=== PATIENT | male | born 1950 ===

== ENCOUNTER 2024-12-22 14:07 | Outpatient (REF) | payer OTHER, SELFPAY ==
--- OUTSIDE RECORDS SUMMARY | 2024-12-22 14:57 | XMS_ITS | Clinical Summary ---
Author Organization [facility] Address [address] [facility] [address] [place] [address] Phone Care Team Providers Care Firestop/Containment Worker Name Role Phone Cj Reyna MD Primary Care Provider [phone] Allergies Active Allergy Reactions Criticality Noted Date Comments Latex Rash Low 08/13/2015 Other reaction(s): itching Pt stated she gets blisters when she uses latex gloves. Medications carvedilol (COREG) 6.25 MG tablet Take 12.5 mg by mouth 2 (two) times a day Active tacrolimus (PROGRAF) 1 MG capsule Take 0.5 mg by mouth in the morning and 0.5 mg in the evening. Active mycophenolate (CELLCEPT) 500 MG tablet 1 tablet 2 (two) times a day Active B-D UF III MINI PEN NEEDLES 31G X 5 MM misc USE FOR INJECT basaglar 1 Active GNP Melatonin 3 MG tablet TAKE ONE TABLET BY MOUTH DAILY AT BEDTIME NEEDED FOR insomnia. MAY TAKE 2 TABLETS AFTER 3 DAYS. TAKE 1 HOUR prior to AT BEDTIME 1 Active polyethylene glycol (GLYCOLAX) 17 GM/SCOOP powder DISSOLVE 17gm IN WATER AND DRINK DAILY NEEDED FOR CONSTIPATION 1 Active famotidine (PEPCID) 20 MG tablet TAKE ONE TABLET BY MOUTH 2 (two) times a day. avoid eating and drinking for 10 minutes after each dose 1 Active Empagliflozin (Jardiance) 25 MG tablet Take by mouth Active atorvastatin (LIPITOR) 20 MG tablet Take 20 mg by mouth 1 (one) time each day Active Dulaglutide (TRULICITY SC) Inject under the skin Active tacrolimus (PROGRAF) 0.5 MG capsule TAKE 1 CAPSULE BY MOUTH EVERY MORNING AND TAKE 1 CAPSULE BY MOUTH ONCE DAILY IN THE EVENING 180 capsule 3 03/31/202 3 Active omeprazole OTC (PriLOSEC OTC) 20 MG EC tablet Take 20 mg by mouth 1 (one) time each day Do not crush, chew, or split. Active insulin glargine (LANTUS) 100 UNIT/ML injection Inject 15 Units under the skin every night Active Mounjaro 5 MG/0.5ML solution auto-injector INJECT THE CONTENT OF 1 syringe SUBCUTANEOUSLY EACH WEEK. rotar siteo de inyeccion Active Cholecalcifero l (Vitamin D-3) 25 MCG (1000 UT) capsule Take by mouth Active Active Problems Problem Noted Date Diagnosed Date Obese class I 02/20/2023 02/20/2023 Stage 3b chronic kidney disease 02/20/2023 Renal osteodystrophy 02/20/2023 Patient care statuses 01/31/2022 Osteoarthritis of right knee joint 01/31/2022 Lumbar spondylosis 01/31/2022 Iron deficiency anemia 07/05/2021 Hypertensive disorder 07/05/2021 Type 2 diabetes mellitus wit h diabetic chronic kidney disease 07/05/2021 Acute nontraumatic kidney injury 11/25/2020 Chronic kidney disease stage 3 11/25/2020 Hyperkalemia 11/25/2020 Stage 3a chronic kidney disease 11/25/2020 Intestinal obstruction, not otherwise specified 07/19/2016 02/20/2023 Asthma 12/30/2015 02/20/2023 Schistosomiasis 01/27/2015 02/20/2023 Resolved Problems Problem Noted Date Diagnosed Date Resolved Date Umbilical hernia 07/05/2021 07/20/2021 Tubular adenoma of colon 07/05/202108/2021 Surgical follow-up 07/05/2021 2 Renal tubular acidosis 07/05/202107/20 Needs assistance at home 07/05/202108/2021 Portal vein thrombosis 07/05/202107/20 Immunosuppression 07/05/2021 07/20/2021 H/O: liver recipient 07/05/2021 022 H/O: skin disorder 07/05/2021 2 Esophageal varix 07/05/2021 07/20/2021 Femoral hernia 07/05/2021 07/20/2021 Genital warts 07/05/2021 07/20/2021 Cirrhosis of liver 07/05/2021 Secondary diabetes mellitus 11/25/2020 07/20/2021 Osteopenia 01/22/2018 07/20/2021 History of colonoscopy 05/05/201507/20 Encounters Date Type Department Care Team Description 10/14/2024 2:00 PM EDT Office Visit [facility] P.. [address] [place] [phone] Devante De La Cruz MD Stage 3a chronic kidney disease (HCC) (Primary Dx); Hypertensive disorder from Last 3 Months Immunizations Immunization Administration Dates Next Due Hepatitis B 03/22/2015,02/18/2015 Influenza, Unspecified 07/17/2021,2019,03/11/2019,08/21/2018 ,04/23/2018,03/27/2017,05/16/2016 Moderna SARS-COV-2 11/03/2020,10/06/2020 PPD Test 04/07/2014 Pfizer SARS-COV-2 11/10/2021,05/18/2021 Pneumococcal Conjugate 13-Valent 01/16/2019,06/17 Pneumococcal Polysaccharide 03/24/2019, 3 Tdap 04/23/2018,04/07/2014 Zoster 05/06/2015 Family History Medical History Relation Comments Diabetes Father Diabetes Mother Kidney disease Sibling brother-esrd Relation Status Comments Father Mother Sibling Social History Tobacco Use Types Packs/Day Years Used Date Smoking Tobacco: Never Alcohol Use Standard Drinks/Week Comments No 0 (1 standard drink = 0.6 oz pur e alcohol) Comments Unknown Sex and Gender Information Value Date Recorded Sex Assigned at Not on file Legal Sex Female 4:42 PM EST Gender Identity Not on file Sexual Orientation Not on file Last Filed Vital Signs Vital Sign Reading Time Taken Comments Blood Pressure 118/70 10/14/2024 1:55 PM EDT Pulse 66 10/14/2024 1:55 PM EDT Temperature - - Respiratory Rate - - Oxygen Saturation 97% 10/14/2024 1:55 PM EDT Inhaled Oxygen Concentration - - Weight 76.4 kg (168 lb 6.4 oz) 10/14/2024 1:55 P M EDT Height 154.9 cm (5' 1 ) 04/15/2024 2:09 PM EDT Body Mass Index 31.82 04/15/2024 2:09 PM EDT Plan of Treatment Upcoming Encounters Date Type Department Care Team (Late st Contact Info) Description 07/12/2025 1:00 PM EST Office Visit [facility] [address] [phone] Steff Medellin ARNP [address] [facility] [address] [place] [phone] Health Maintenance Due Date Last Done Comments Breast Cancer Screening 1951 Colorectal Cancer Screening: Annual FOBT 2000 Colorectal Cancer Screening: Sigmoidoscopy 2000 Diabetes: Hemoglobin A1C 07/17/2020 Diabetes: Ophthalmology Exam 07/17/2020 Diabetes: Pedal Pulse Checked 07/17/2020 Diabetes: Sensory Foot Exam 07/17/2020 Diabetes: Visual Foot Exam 07/17/2020 Influenza Vaccine (#1) 2025 2, 04/01/2020, 03/11/2019, Additional history exists Colorectal Cancer Screening: Colonoscopy 07/20/2031 07/20/2021 Hepatitis B Vaccine Aged Out 03/22/2015, 02/27/2015, 02/18/2015 No longer eligible based on patient's age to complete this topic Pneumococcal Vaccine: 50+ Years Completed 03/24/2019, 01/16/2019, 06/29/2015, Additional history exists Pneumococcal Vaccine: Peds (0 to 5 Years) and At-Risk Patients (6 to 49 Years) Discontinued 03/24/2019, 01/16/2019, 06/29/2015, Additional history exists Procedures Procedure Name Priority Date/Time Associated Diagnosis Comments MAGNESIUM Routine 09/28/2024 3:16 PM EDT Stage 3b chronic kidney disease (HCC) Type 2 diabetes mellitus with diabetic chronic kidney disease (HCC) Hypertensive disorder CBC Routine 09/28/2024 3:16 PM EDT Stage 3b chronic kidney disease (HCC) Type 2 diabetes mellitus with diabetic chronic kidney disease (HCC) Hypertensive disorder VITAMIN D 25 HYDROXY Routine 09/28/2024 3:16 PM EDT Stage 3b chronic kidney disease (HCC) Type 2 diabetes mellitus with diabetic chronic kidney disease (HCC) Hypertensive disorder PROTEIN / CREATININE RATIO, URINE Routine 09/28/2024 3:16 PM EDT Stage 3b chronic kidney disease (HCC) Type 2 diabetes mellitus with diabetic chronic kidney disease (HCC) Hypertensive disorder URINE ALBUMIN / CREATININE RATIO Routine 09/28/2024 3:16 PM EDT Stage 3b chronic kidney disease (HCC) Type 2 diabetes mellitus with diabetic chronic kidney disease (HCC) Hypertensive disorder URINALYSIS WITH MICROSCOPIC Routine 09/28/2024 3:16 PM EDT Stage 3b chronic kidney disease (HCC) Type 2 diabetes mellitus with diabetic chronic kidney disease (HCC) Hypertensive disorder RENAL FUNCTION PANEL Routine 09/28/2024 3:16 PM EDT Stage 3b chronic kidney disease (HCC) Type 2 diabetes mellitus with diabetic chronic kidney disease (HCC) Hypertensive disorder PTH, INTACT Routine 09/28/2024 3:16 PM EDT Stage 3b chronic kidney disease (HCC) Type 2 diabetes mellitus with diabetic chronic kidney disease (HCC) Hypertensive disorder MICROSCOPIC EXAMINATION - DO NOT USE Routine 09/28/2024 3:16 PM EDT from Last 3 Months Results * Microscopic Examination (09/28/2024 3:16 PM EDT) WBC, Urine 0-5 0 - 5 /hpf [facility] RBC, Urine None seen 0 - 2 /hpf [facility] Squamous Epithelial, Urine 0-10 0 - 10 /hpf [facility] Casts None seen None seen /lpf [facility] Bacteria, Urine None seen None seen/Few [facility] 09/28/2024 3:16 PM EDT 09/28/2024 us Devante De La Cruz MD LAB MICROBIOLOGY - GENERAL OR DERABLES Final Result Performing Organization Address [facility]/ZIP Co de Phone Number [facility] [address] [place] [phone] * Protein, Total, Random Urine w/Creatinine (Protein/Creat Ratio) (09/28/2024 3:16 PM EDT) Creatinine, Ur 91.6 Not Estab. mg/dL [facility] Protein, Ur 10.7 Not Estab. mg/dL [facility] Urine Protein/Creatin ine Ratio 117 0 - 200 mg/g creat [facility] Urine specimen (specimen) Urine specimen obtained by clean catch procedure / Unknown 09/28/2024 3:16 PM EDT 09/28/2024 us Devante De La Cruz MD LAB URINE ORDERABLES Final Re sult Performing Organization Address [facility]/ZIP Co de Phone Number [facility] [address] [place] [address] * Urine Albumin / Creatinine Ratio (09/28/2024 3:16 PM EDT) Albumin, Urine 18.0 Not Estab. ug/mL [facility] Albumin/Creatin ine Ratio 20 0 - 29 mg/g creat [facility] Comment: Normal: 0 - 29 Moderately increased: 30 - 300 Severely increased: >300 Urine specimen (specimen) Urine specimen obtained by clean catch procedure / Unknown 09/28/2024 3:16 PM EDT 09/28/2024 us Devante De La Cruz MD LAB URINE ORDERABLES Final Re sult Performing Organization Address City/[facility]/ZIP Co de Phone Number [facility] [address] [place] [address] * Vitamin D 25 Hydroxy (09/28/2024 3:16 PM EDT) Vitamin D, 25-OH, Total 31.8 30.0 - 100.0 ng/mL [facility] Comment: Vitamin D deficiency has been defined by the [place] [employer] and an Endocrine Society practice guideline as a level of serum 25-OH vitamin D less than 20 ng/mL (1,2). The Endocrine Society went on to further define vitamin D insufficiency as a level between 21 and 29 ng/mL (2). 1. IOM ([place] of [employer]). 2010. Dietary reference intakes for calcium and D. [place]: The National Academies Press. 2. Dotty MF, Christina PANCHAL, Maribell DANIEL, et al. Evaluation, treatment, and prevention of vitamin D deficiency: an Endocrine Society clinical practice guideline. JCEM. 2010; 96(7):1911-30. Blood specimen (specimen) Venous blood / Unknown 09/28/2024 3:16 PM EDT 09/28/2024 Devante De La Cruz MD LAB BLOOD ORDERABLES Final Re sult Performing Organization Address City/[facility]/ZIP Co de Phone Number [facility] [address] [place] [address] * (ABNORMAL) Urinalysis with microscopic (09/28/2024 3:16 PM EDT) Specific [place], Urine 1.026 1.005 - 1.030 [facility] pH Urine 5.5 5.0 - 7.5 [facility] [phone] Color, Urine Yellow Yellow [facility] [phone] Appearance Urine Clear Clear [facility] [phone] WBC Esterase Urine Negative Negative [facility] Protein, Ur Trace Negative/Tra ce [facility] Glucose, Ur 3+(A) Negative [facility] Ketones, Urine Negative Negative [facility] [phone] Blood Urine Negative Negative [facility] [phone] Bilirubin Urine Negative Negative [facility] Urobilinogen Urine 0.2 0.2 - 1.0 mg/dL [facility] Nitrite, Urine Negative Negative [facility] Microscopic Examination Comment [facility] Comment:Microscopic follows if indicated. Other Microsc. Observations See below: [facility] Comment:Microscopic was ezequiel cated and was performed. Urine specimen (specimen) Urine specimen obtained by clean catch procedure / Unknown 09/28/2024 3:16 PM EDT 09/28/2024 us Devante De La Cruz MD LAB URINE ORDERABLES Final Re sult [facility] [address] [place] [address] * CBC (09/28/2024 3:16 PM EDT) WBC 6.2 3.4 - 10.8 x10E3/uL [facility] RBC 5.00 3.77 - 5.28 x10E6/uL [facility] Hemoglobin 14.0 11.1 - 15.9 g/dL [facility] Hematocrit 43.2 34.0 - 46.6 % [facility] MCV 86 79 - 97 fL [facility] MCH 28.0 26.6 - 33.0 pg [facility] MCHC 32.4 31.5 - 35.7 g/dL [facility] RDW 14.5 11.7 - 15.4 % [facility] Platelets 180 150 - 450 x10E3/uL [facility] Blood specimen (specimen) Venous blood / Unknown 09/28/2024 3:16 PM EDT 09/28/2024 Devante De La Cruz MD LAB BLOOD ORDERABLES Final Re sult [facility] [address] [place] [address] * PTH, Intact (09/28/2024 3:16 PM EDT) PTH 37 15 - 65 pg/mL [facility] Blood specimen (specimen) Venous blood / Unknown 09/28/2024 3:16 PM EDT 09/28/2024 Devante De La Cruz MD LAB BLOOD ORDERABLES Final Re sult Performing Organization Address [facility]/ZIP Co de Phone Number [facility] [address] [place] [phone] * Magnesium (09/28/2024 3:16 PM EDT) Magnesium 1.9 1.6 - 2.3 mg/dL [facility] Blood specimen (specimen) Venous blood / Unknown 09/28/2024 3:16 PM EDT 09/28/2024 Devante De La Cruz MD LAB BLOOD ORDERABLES Final Re sult Performing Organization Address City/[facility]/ZIP Co de Phone Number [facility] [address] [place] [address] * (ABNORMAL) Renal Function Panel (09/28/2024 3:16 PM EDT) Glucose 113(H) 70 - 99 mg/dL [facility] BUN 29(H) 8 - 27 mg/dL [facility] Creatinine 1.09(H) 0.57 - 1.00 mg/dL [facility] eGFR CKD-EPI CR 2020 54(L) >59 mL/min/1.7 3 [facility] BUN/Creatinine Ratio 27 12 - 28 [facility] Sodium 141 134 - 144 mmol/L [facility] Potassium 4.5 3.5 - 5.2 mmol/L [facility] Chloride 107(H) 96 - 106 mmol/L [facility] Bicarbonate (CO2) 18(L) 20 - 29 mmol/L [facility] Calcium 9.0 8.7 - 10.3 mg/dL [facility] Albumin 4.4 3.8 - 4.8 g/dL [facility] Phosphorus 3.7 3.0 - 4.3 mg/dL [facility] Blood specimen (specimen) Venous blood / Unknown 09/28/2024 3:16 PM EDT 09/28/2024 us Devante De La Cruz MD LAB BLOOD ORDERABLES Final Re sult [facility] [address] [place] [phone] from Last 3 Months Insurance [facility] ([id number]) [facility] ([id number]) Care Teams Firestop/Containment Worker Relationship Specialty Start Date End Date Cj Reyna MD [address] [place] [phone] PCP - General Internal Medicine 11/25/20
--- OUTSIDE RECORDS SUMMARY | 2024-12-22 14:57 | XMS_ITS | Data Portability ---
Author Organization [facility] Serge Wisdom [facility]geons [facility], [facility] Address [address] [place] [address] Care Team Providers Care Tank Wagon Driver Name Role Phone [facility] Primary Care Provider Assessment Encounter Date Assessment Date Assessment LastModified by Organization Details LastModified Time 12/04/2023 12/04/2023 I am seeing the patient today under the supervision of Dr. Norton who was available but who did not see the patient. HPI: Patient presents today follow-up regarding their Right knee. They have had difficulty up and down stairs sitting standing. Previous injection gave good relief until recent. Problems ambulating. Dnzz-ehn-cbhyxnx medications are helping somewhat but not significantly. Pain is constant aching sometimes sharp pain with giving out sensations. Past family, medical, social history and review of systems has been reviewed, updated and is located in the patient s chart. Examination: The patient is well appearing and in no apparent distress. Alert and oriented x3. Gait is symmetric. Examination of the Right knee reveals no evidence of any edema, erythema, or warmth. No Deformity. Range of motion of the knee limited with mild discomfort at the end ranges. Mild effusion. Does have some tenderness to palpation about the medial hemijoint line. No tenderness to palpation about the lateral hemijoint line. Patellofemoral crepitus is noted. mild lateral ligamentous laxity. Negative Lata s. Calf is supple and nontender. Neurovascularly intact distally. Impression: Right Knee osteoarthritis Plan: We discussed the role of conservative management including medications, physical therapy, injection and bracing. At this point the patient was to proceed with injection. Please see procedure note. They will follow up with us as scheduled.Patient also put on tizanidine meloxicam soilazmisha Not available 12/04/2023 10:56:52 08/21/2024 08/21/2024 I am seeing the patient today under the supervision of Dr Norton who was available but who did not see the patient. Not available 08/21/2024 08:30:52 11/18/2024 11/18/2024 I am seeing the patient today under the supervision of Dr Norton who was available but who did not see the patient. Not available 11/18/2024 08:59:36 Plan of Treatment Reminders Order Date Submit Date Provider Last Modified By Organization Details Last Modified Time Details Appointments None recorded. Lab None recorded. Referral None recorded. Procedures None recorded. Surgeries None recorded. Imaging None recorded. Medication Orders meloxicam 15 mg tablet 2023 024 [facility], [address] [place] [address], [id number], 11:06:29 tizanidine 4 mg tablet 2023 024 [facility], [address] [place] [address], [id number], 11:06:29 Patient TargetsNo targets recorded. Patient InstructionsNo instructions recorded. Reason for Referral None Reported. Problems Name Problem SNOMED Code Status Onset Date Resolution Date Notes Provider Name and Address Organization Details Recorded Time Pain of right knee joint 6614875150596 00 Active 2021 Status : 'A'; Not Available [facility] 11:59:36 Osteoarthr itis of knee 819478664 [facility] 10:55:16 Problem Notes None recorded. Procedures Surgical History Date Name Laterality Status Provider Name and Address Organization Details Recorded Time 11/18/2024 JUSTIN INJ completed Ben Curry PA-C [address], [place], [address], [facility] 11/18/2024 08:59:33 08/21/2024 JUSTIN INJ completed Ben Curry PA-C [address], [place], [address], [facility] 08/21/2024 08:32:22 12/04/2023 JUSTIN INJ completed Ben Curry PA-C [address], [place], [address], [facility] 12/04/2023 10:55:16 Imaging Results None recorded. Procedure Notes None recorded. Medical Equipment None Reported. Allergies No known drug allergies Medications Name Sig Start Date Stop Date Status Note LastModified by Organization Details LastModified Time atorvastatin 20 mg tablet TAKE 1 TABLET BY MOUTH ONCE DAILY active Not Available Not Available No t Available carvedilol 12.5 mg tablet TAKE 1 TABLET BY MOUTH two (2) times a day active Not Available Not Available No t Available tizanidine 4 mg tablet Take 1 tablet every 8 hours by oral route as needed. 2023 active Not Available Not Available Not Avai lable meloxicam 15 mg tablet Take 1 tablet every day by oral route after meal(s). 2023 active Not Available Not Available Not Avai lable FreeStyle Lancets 28 gauge USE TO TEST FINGER STICK BLOOD SUGAR 4 (FOUR) TIMES DAILY active Not Available Not Available Not Available melatonin 3 mg tablet TAKE 2 TABLETS BY MOUTH ONCE DAILY AT BEDTIME NEEDED FOR SLEEP active Not Available Not Available No t Available amlodipine 5 mg tablet TAKE 1 TABLET BY MOUTH ONCE DAILY active Not Available Not Available No t Available mycophenolat e mofetil 500 mg tablet TAKE 1 TABLET BY MOUTH IN THE MORNING AND TAKE 1 TABLET BY MOUTH IN THE EVENING active Not Available Not Available Not Available prednisolone acetate 1 % eye drops,suspen jennifer INSTILL 1 DROP IN THE RIGHT EYE 3 (THREE) TIMES A DAY active Not Available Not Available Not Available triamcinolon e acetonide 0.025 % topical ointment Apply to itchy areas on arms, legs, chest, back prn flares, decrease use as symptoms improve. active Not Available Not Available No t Available omeprazole 20 mg capsule,bo yed release TAKE 1 CAPSULE BY MOUTH ONCE DAILY BEFORE A MEAL active Not Available Not Available No t Available polyethylene glycol 3350 17 gram/dose oral powder DISSOLVE 1 SCOOP (17GRAMOS) IN WATER OR JUICE AND TAKE ONCE DAILY active Not Available Not Available No t Available betamethason e dipropionate 0.05 % lotion Apply topically to scalp twice a daily as needed for flares, decrease as symptoms improve active Not Available Not Available No t Available tacrolimus 0.5 mg capsule, immediate-re lease TAKE 1 CAPSULE BY MOUTH EVERY MORNING AND EVERY EVENING active Not Available Not Available No t Available Ventolin HFA 90 mcg/actuatio n aerosol inhaler INHALE 2 PUFFS BY MOUTH EVERY 6 HOURS NEEDED FOR WHEEZING active Not Available Not Available No t Available Vitamin D3 25 mcg (1,000 unit) tablet TAKE 1 TABLET BY MOUTH ONCE DAILY FOR vitamina d active Not Available Not Available N ot Available Alcohol Prep Pads USE TOPICALLY 3 (THREE) TIMES A DAY active Not Available Not Available Not Available BD Ultra-Fine Mini Pen Needle 31 gauge x 3/16 USE TO TEST FINGER STICK BLOOD SUGAR ONCE DAILY active Not Available Not Available No t Available FreeStyle Lite Meter kit USE TO TEST FINGER STICK BLOOD SUGAR 4 (FOUR) TIMES DAILY active Not Available Not Available Not Available FreeStyle Lite Strips USE TO TEST FINGER STICK BLOOD SUGAR 4 (FOUR) TIMES DAILY active Not Available Not Available Not Available Lantus Solostar U-100 Insulin 100 unit/mL (3 mL) subcutaneous pen INJECT 15 UNITS SUBCUTANEOU SLY ONCE DAILY AT BEDTIME active Not Available Not Available No t Available diclofenac 1 % topical gel APPLY 2 gramos TOPICALLY 4 (FOUR) TIMES DAILY NEEDED FOR PAIN leve active Not Available Not Available No t Available Jardiance 25 mg tablet TAKE 1 TABLET BY MOUTH ONCE DAILY IN THE MORNING active Not Available Not Available Not Available Trulicity 1.5 mg/0.5 mL subcutaneous pen injector INJECT THE CONTENT OF 1 syringe SUBCUTANEOU SLY EACH WEEK. rotar siteo de inyeccion active Not Available Not Available No t Available Trulicity 3 mg/0.5 mL subcutaneous pen injector INJECT THE CONTENT OF 1 syringe SUBCUTANEOU SLY EACH WEEK active Not Available Not Available No t Available Mounjaro 5 mg/0.5 mL subcutaneous pen injector INJECT THE CONTENT OF 1 syringe SUBCUTANEOU SLY EACH WEEK. rotar los siteo de inyeccion active Not Available Not Available No t Available Mounjaro 2.5 mg/0.5 mL subcutaneous pen injector INJECT THE CONTENT OF 1 syringe SUBCUTANEOU SLY EACH WEEK. rotar site de inyeccion active Not Available Not Available No t Available True Comfort Safety Pen Needle 31 gauge x 3/16 USE TO TEST FINGER STICK BLOOD SUGAR ONCE DAILY active Not Available Not Available No t Available Vitals Date Recorded Body height Body mass index (BMI) Body weight Provider Name and Address Organization Details Last Updated DateTime 08/21/2024 154.94 cm 31.2 kg/m2 98706.74 g [facility] 08/21/2024 08:26:49 Date Recorded Body height Body mass index (BMI) Body weight Provider Name and Address Organization Details Last Updated DateTime 11/18/2024 154.94 cm 31.2 kg/m2 70178.74 g [facility] 11/18/2024 08:44:15 Date Recorded Body height Body mass index (BMI) Body weight Provider Name and Address Organization Details Last Updated DateTime 12/04/2023 154.94 cm 31.2 kg/m2 21867.74 g TIFFANIE GALICIA [facility] 12/04/2023 10:51:08 Social History None recorded. Functional Status None recorded. Mental Status None recorded. Family History Nothing Reported. Medical History No medical history recorded. Gynecological HistoryNo gynecological history recorded. Obstetrics History GPAL:G 0 P 0 0 0 0 Past Encounters Encounter ID Performer Location Encounter Start Date Encounter Closed Date Diagnosis/Indication Diagnosis SNOMED-CT Code Diagnosis ICD10 Code Diagnosis Note [id number] SIMEON Villanueva [address] [place] [address] 12/04/2023 10:42:27 12/31/2023 13:29:15 Osteoarthritis of knee 092583408 M17.9 [id number] SIMEON Villanueva [address] [place] [address] 08/21/2024 08:11:47 09/08/2024 09:41:42 Osteoarthritis of knee 336469042 M17.9 [id number] SIMEON Villanueva [address] [place] [address] 11/18/2024 08:38:43 11/30/2024 12:17:13 Osteoarthritis of knee 916483498 M17.9 Health Concerns Section Related Observation LastModified by Organization Detai ls LastModified Time None Recorded Concern Status LastModified by Organization Details LastModified Time None Recorded Advance Directives Directive None Recorded Payers Insurance Date Sequence Insurance Name Policy Number Policy Pascual Covered Member ID Pascual Member ID Guarantor Name 11/18/2024 1 [facility] - DOS ON OR AFTER 2022 - NURSING HOME OPTIONS (MEDICARE REPLACEMENT/AD VANTAGE - HMO) Mony Justice [id number] Mony Justice 11/18/2024 1 [facility] - DOS ON OR AFTER 2022 - ONE [employer] (MEDICARE REPLACEMENT/AD VANTAGE - HMO) Mony Justice [id number] Mony Justice OBGyn Episode No OBEpisode recorded.
== END 2024-12-22 14:08 | disposition home or self-care (01) ==
LOC: HO.SH 14:07
PROVIDERS: Visit Provider Internal Medicine
DX: Z01.118 Encounter for examination of ears and hearing with other abnormal findings (principal); H90.3 Sensorineural hearing loss, bilateral
CPT/HCPCS: 92557; 92567